=== PATIENT | female | born 1980 | race Hispanic/Latino ===

== ENCOUNTER → 2025-07-17 | Outpatient (CLI) | payer BC ==
[2025-07-17 22:06] VITALS: PULSE 66; RESP 12
[2025-07-17 22:33] VITALS: PULSE 61; RESP 12
[2025-07-17 23:00] VITALS: PULSE 64; RESP 12
[2025-07-17 23:30] VITALS: PULSE 61; RESP 12
[2025-07-18] VITALS (11 sets, daily range): PULSE 57–83; RESP 12–14
== END | disposition home or self-care (01) ==
LOC: SLP 20:34
PROVIDERS: ATTEND Family Medicine
DX: G47.33 Obstructive sleep apnea (adult) (pediatric) (principal); R06.83 Snoring; I10 Essential (primary) hypertension; R53.83 Other fatigue; R51.9 Headache, unspecified
CPT/HCPCS: 95810

== ENCOUNTER → 2025-08-12 | Outpatient (CLI) | payer BC ==
[2025-08-12 23:02] VITALS: PULSE 68; RESP 12
[2025-08-12 23:30] VITALS: PULSE 70; RESP 14
[2025-08-13] VITALS (11 sets, daily range): PULSE 58–70; RESP 6–18
== END | disposition home or self-care (01) ==
LOC: SLP 20:31
PROVIDERS: ATTEND Family Medicine
DX: G47.33 Obstructive sleep apnea (adult) (pediatric) (principal); R06.83 Snoring; I10 Essential (primary) hypertension; R53.83 Other fatigue; R51.9 Headache, unspecified
CPT/HCPCS: 95811